=== PATIENT | female | born 2000 | race Asian ===

== ENCOUNTER 2025-04-22 06:25 | Outpatient (REF) | payer OTHER, SELFPAY ==
--- NOTE | ~2025-04-22 | US_ITS ---
EXAMINATION: US PELVIC, LIMITED/FOLLOW UP CLINICAL INFORMATION: Localized swelling/lump lower back x1 year fluctuates . Associated with pain and tingling in legs. COMPARISON: None available. TECHNIQUE: Grayscale and color Doppler ultrasound imaging of the area of concern in the patient's lower back was performed. FINDINGS: In the area of concern, there is no mass, cyst, abnormal fluid collection, or other abnormality. Only normal subcutaneous soft tissues are noted. US/US pelvic limited IMPRESSION: Normal examination. No abnormality identified. Electronically signed by: Regulo Bradshaw MD 04/22/2025 03:04 PM EDT
--- OUTSIDE RECORDS SUMMARY | 2025-04-22 06:31 | XMS_ITS | Clinical Summary ---
Author Organization [facility] Address [address] [facility] [address] [place] [address] Care Team Providers Care Motor Vehicle Dispatcher Name Role Phone No Pcp, Per Patient Primary Care Provider Unavai lable Allergies No known active allergies Medications No known medications Active Problems Problem Noted Date Diagnosed Date Encounter for supervision of normal first in first trimester ([facility]) 03/04/2022 Overview (03/16/2022): 1. Dating- uncertain lmp- TYLOR by u/s at 9 weeks 10/06/22 2. LAbs- ob panel today Pap deferred, 21 yo 3. Genetics- desires cf, sma, HGBE - CF and SMA Negative Reviewed ss vs. NIPT, pt considering, NT at 12 weeks 4. Teen pgy, states FOB supportive. Will arrange SW consult. Family History Medical History Relation Name Comments No Known Problems Brother 1 No Known Problems Brother 2 No Known Problems Father No Known Problems Mother No Known Problems Sister 1 No Known Problems Sister 2 Relation Name Status Comments Brother 1 Alive Brother 2 Alive Father Alive Mother Alive Sister 1 Alive Sister 2 Alive Social History Tobacco Use Types Packs/Day Years Used Date Smoking Tobacco: Never Alcohol Use Standard Drinks/Week Comments Never 0 (1 standard drink = 0.6 oz pur e alcohol) Comments No Sex and Gender Information Value Date Recorded Sex Assigned at Female 02/04/2022 1:14 PM EDT Legal Sex Female 2:38 PM EDT Gender Identity Not on file Sexual Orientation Not on file Last Filed Vital Signs Vital Sign Reading Time Taken Comments Blood Pressure 100/60 03/04/2022 2:52 PM EDT Pulse - - Temperature - - Respiratory Rate - - Oxygen Saturation - - Inhaled Oxygen Concentration - - Weight 51.3 kg (113 lb) 03/04/2022 2:52 PM EDT Height - - Body Mass Index - - Plan of Treatment Not on file Insurance [facility] O Care Teams Motor Vehicle Dispatcher Relationship Specialty Start Date End Date No Pcp, Per Patient STEVE PCP - General 01/17/22
--- OUTSIDE RECORDS SUMMARY | 2025-04-22 06:31 | XMS_ITS | Referral Summary ---
Author Organization [facility] Address [address] [place] [address] Phone Care Team Providers Care Electrical Engineering Draftsperson Name Role Phone Vicenta Holman MD Unavailable Unavailable Pcp-Confirmed, No Primary Care Provider Unavaila ble Allergies No known active allergies Medications pyridoxine, vitamin B6, (VITAMIN B-6) 25 MG tabletIndicatio ns: with care elsewhere, antepartum Take 1 tablet (25 mg total) by mouth every 8 (eight) hours. 90 tablet 4 04/15/2022 Active doxylamine (UNISON) 25 mg tabletIndicatio ns: with care elsewhere, antepartum Take 1 tablet (25 mg total) by mouth nightly as needed for nausea. 60 tablet 4 04/15/2022 Active [id number] a-epa-fish oil ( GUMMY) 400 mcg-35 mg -25 mg-5 mg ChewIndications : with care elsewhere, antepartum Chew then swallow 1 tablet daily. 60 tablet 4 04/15/2022 Active aspirin 81 mg tabletIndicatio ns: with care elsewhere, antepartum Take 1 tablet (81 mg total) by mouth daily. 60 tablet 4 04/15/2022 Active Active Problems Problem Noted Date Diagnosed Date with care elsewhere, antepart um 04/15/2022 Encounter for supervision of normal first in first trimester 03/04/2022 Overview (04/15/2022): 1. Dating- uncertain lmp- TYLOR by u/s at 9 weeks 10/06/22 2. LAbs- ob panel today Pap deferred, 21 yo 3. Genetics- desires cf, sma, HGBE - CF and SMA Negative Reviewed ss vs. NIPT, pt considering, NT at 12 weeks 4. Teen pgy, states FOB supportive. Will arrange SW consult. Social History Tobacco Use Types Packs/Day Years Used Date Smoking Tobacco: Never Assessed Comments No Sex and Gender Information Value Date Recorded Sex Assigned at Not on file Legal Sex Female 11:05 AM EDT Gender Identity Not on file Sexual Orientation Not on file Last Filed Vital Signs Vital Sign Reading Time Taken Comments Blood Pressure 97/64 04/15/2022 5:01 PM EDT Pulse - - Temperature - - Respiratory Rate - - Oxygen Saturation - - Inhaled Oxygen Concentration - - Weight 52 kg (114 lb 10.2 oz) 04/15/2022 5:01 PM EDT Height - - Body Mass Index - - Plan of Treatment Not on file Care Teams Electrical Engineering Draftsperson Relationship Specialty Start Date End Date Vicenta Holman MD PCP - Insurance 01/14/22 Pcp-Confirmed, No PCP - General 05/19/22
--- OUTSIDE RECORDS SUMMARY | 2025-04-22 06:31 | XMS_ITS | Clinical Summary ---
Author Organization [facility] Address [address] [place] [address] Phone Care Team Providers Care Polygraph Operator Name Role Phone Vicenta Holman MD Unavailable [...] for nausea. 60 tablet 4 04/15/2022 Active [id number] a-epa-fish oil ( GUMMY) 400 mcg-35 mg [...] Mass Index - - Plan of Treatment Health Maintenance Due Date Last Done Comments HIV Lifetime Screening 2002 Hepatitis B Lifetime Screening 2002 Hepatitis C Antibody Lifetime Screening 2002 THRIVE SCREENING 2002 Oral Health Screen 04/23/2003 MMR VACCINES (1 of 1 - Standard series) 11/22/2003 HEIP Disability Screen 11/22/2007 BEHAVIORAL HEALTH SCREEN 2014 Psych Substance Use Screen 2014 VARICELLA VACCINES (1 of 2 - 13+ 2-dose series) 11/22/2015 CHLAMYDIA SCREENING 2017 HPV VACCINES (1 - 3-dose series) 2017 Relationship Safety Screening 2017 MENINGOCOCCAL B (1 of 2 - Standard) 2018 DTAP/TDAP VACCINE (1 - Tdap) 2021 HEPATITIS B VACCINES (1 of 3 - 19+ 3-dose series) 2021 Cervical Cancer Screening 11/22/2023 Colposcopy 11/22/2023 PAP SMEAR 11/22/2023 Pap + HPV 11/22/2023 INFLUENZA VACCINE (#1) 2025 , 06/08/2022, 06/25/2021, Additional history exists Zoster Vaccine (1 of 2) 2052 COVID-19 Vaccine Discontinued 09/05/2021, , 12/26/2020 HEPATITIS A VACCINES Aged Out No long er eligible based on patient's age to complete this topic HIB VACCINES Aged Out No longer eligi ble based on patient's age to complete this topic IPV VACCINES Aged Out No longer eligi ble based on patient's age to complete this topic MENINGOCOCCAL ACWY Aged Out No longer eligible based on patient's age to complete this topic Pneumonia Vaccine 0-49 Years Aged Out No longer eligible based on patient's age to complete this topic ROTAVIRUS VACCINES Aged Out No longer eligible based on patient's age to complete this topic Care Teams Polygraph Operator Relationship Specialty Start Date End Date Vicenta Holman MD PCP - Insurance 01/14/22 Pcp-Confirmed, No PCP - General 05/19/22
--- OUTSIDE RECORDS SUMMARY | 2025-04-22 06:31 | XMS_ITS | Encounter Summary ---
Author Organization [facility] Address [address] [place] [address] Phone Care Team Providers Care Linux Unix System Administrator Name Role Phone Vicenta Holman MD Unavailable Unavailable Pcp-Confirmed, No Primary Care Provider Unavaila ble Reason for Visit * Reason Onset Date Comments Appointment 05/10/2022 Encounter Details Date Type Department Care Team (Late st Contact Info) Description 05/10/2022 Telephone [facility] [address] [facility] [address] [place] [phone] [place] [address] Appointment Social History Tobacco Use Types Packs/Day Years Used Date Smoking Tobacco: Never Assessed Comments Yes Sex and Gender Information Value Date Recorded Sex Assigned at Not on file Legal Sex Female 11:05 AM EDT Gender Identity Not on file Sexual Orientation Not on file documented as of this encounter Miscellaneous Notes * Telephone Encounter - Tomeka Lassiter - 05/10/2022 2:51 PM EDT Patient Reported Reason for Call Patient presents with ??? Appointment Pt called to reschedule f/u. documented in this encounter Plan of Treatment Not on file documented as of this encounter Visit Diagnoses Not on filedocumented in this encounter Care Teams Linux Unix System Administrator Relationship Specialty Start Date End Date Vicenta Holman MD PCP - Insurance 01/14/22 Pcp-Confirmed, No PCP - General 05/19/22 documented as of this encounter
--- OUTSIDE RECORDS SUMMARY | 2025-04-22 06:31 | XMS_ITS | Encounter Summary ---
Author Organization [facility] Address [address] [place] [address] Phone Care Team Providers Care Cost And Risk Analysis Manager Name Role Phone Vicenta Holman MD Unavailable Unavailable Pcp-Confirmed, No Primary Care Provider Unavaila ble Reason for Visit * Reason Onset Date Comments Call Back 04/01/2022 Encounter Details Date Type Department Care Team (Late st Contact Info) Description 04/01/2022 Telephone [facility] [address] [facility] [address] [place] [address] Pcp-Confirmed, No Call Back Social History Tobacco Use Types Packs/Day Years Used Date Smoking Tobacco: Never Assessed Comments Unknown Sex and Gender Information Value Date Recorded Sex Assigned at Not on file Legal Sex Female 11:05 AM EDT Gender Identity Not on file Sexual Orientation Not on file documented as of this encounter Miscellaneous Notes * Telephone Encounter - Betty Lynn - 04/01/2022 3:31 PM EDT Patient Reported Reason for Call Patient presents with ??? Call Back Pt is calling to transfer her [place] [facility]. I tried to schedule under new care and there Is not a template to schedule for that visit type. Age:21 P: [phone] LMP: 12/30/2021 Estimated Due date: 10/06/2022 OBGYN: [facility] documented in this encounter Plan of Treatment Not on file documented as of this encounter Visit Diagnoses Not on filedocumented in this encounter Care Teams Cost And Risk Analysis Manager Relationship Specialty Start Date End Date Vicenta Holman MD PCP - Insurance 01/14/22 Pcp-Confirmed, No PCP - General 05/19/22 documented as of this encounter
--- OUTSIDE RECORDS SUMMARY | 2025-04-22 06:31 | XMS_ITS | Clinical Summary ---
Author Organization [facility] Address [address] [facility] [place] [address] Phone Care Team Providers Care Ethernet Network Architect Name Role Phone Required, No Pcp/Pcp Not Primary Care Provider U navailable Allergies No known active allergies Medications No known medications Social History Tobacco Use Types Packs/Day Years Used Date Smoking Tobacco: Never Smokeless Tobacco: Never Comments Unknown Sex and Gender Information Value Date Recorded Sex Assigned at Not on file Legal Sex Female 4:24 PM EDT Gender Identity Not on file Sexual Orientation Not on file Last Filed Vital Signs Vital Sign Reading Time Taken Comments Blood Pressure 91/64 04/04/2022 3:45 PM EDT Pulse 77 04/04/2022 3:45 PM EDT Temperature 36.2 C (97.1 F) 04/04/2022 2:22 PM EDT Respiratory Rate 14 04/04/2022 3:45 PM EDT Oxygen Saturation 96% 04/04/2022 2:22 PM EDT Inhaled Oxygen Concentration - - Weight 50.8 kg (112 lb) 04/04/2022 2:22 PM EDT Height 152.4 cm (5') 04/04/2022 2:22 PM EDT Body Mass Index 21.87 04/04/2022 2:22 PM EDT Plan of Treatment Health Maintenance Due Date Last Done Comments [facility] Topic HIV Screening 2002 [facility] Topic HPV Vaccines (1 - 3-dose series) 2017 [facility] Topic Meningococcal G roup B Conjugate Vaccine (1 of 2 - Standard) 2018 [facility] Topic Tdap Vaccine (1 - Tdap) 2021 [facility] Topic Chlamydia Screening 03/04/2023 03/04/20 [facility] Topic Cervical Cancer Screening 11/22/2023 [facility] Topic Lipid Profile 5 years 2024 [facility] Topic Influenza (Flu) Seasonal (#1) 2025 [facility] Topic Shingrix (1 of 2) 2052 [facility] Topic HIB Vaccines Aged Out No longer eligible based on patient's age to complete this topic Insurance [facility] Care Teams Ethernet Network Architect Relationship Specialty Start Date End Date Required, No Pcp/Pcp Not [address] [place] [address] PCP - General Amalgamator 02/01/22
--- OUTSIDE RECORDS SUMMARY | 2025-04-22 06:31 | XMS_ITS | Encounter Summary ---
Author Organization [facility] Address [address] [place] [address] Phone Care Team Providers Care Gear Tester Name Role Phone Vicenta Holman MD Unavailable Unavailable Pcp-Confirmed, No Primary Care Provider Unavaila ble Reason for Visit * Reason Onset Date Comments Initial Visit 01/14/2022 Encounter Details Date Type Department Care Team (Late st Contact Info) Description 01/14/2022 Telephone [facility] [address] [facility] [address] [address] [place] [phone] [place] [address] Initial Visit Social History Tobacco Use Types Packs/Day Years Used Date Smoking Tobacco: Never Assessed Comments Unknown Sex and Gender Information Value Date Recorded Sex Assigned at Not on file Legal Sex Female 11:05 AM EDT Gender Identity Not on file Sexual Orientation Not on file documented as of this encounter Miscellaneous Notes * Telephone Encounter - Yasir Boucher - 01/14/2022 2:38 PM EDT Patient Reported Reason for Call Patient presents with ??? Initial Visit new pt called stating she is . Pt would like to establish care with a doctor for care .please call to further assist documented in this encounter Plan of Treatment Not on file documented as of this encounter Visit Diagnoses Not on filedocumented in this encounter Care Teams Gear Tester Relationship Specialty Start Date End Date Vicenta Holman MD PCP - Insurance 01/14/22 Pcp-Confirmed, No PCP - General 05/19/22 documented as of this encounter
--- OUTSIDE RECORDS SUMMARY | 2025-04-22 06:31 | XMS_ITS | Clinical Summary ---
Author Organization [facility] Address [address] [place] [phone] Phone Care Team Providers Care Prospecting Driller Name Role Phone Vicenta Holman MD Primary Care Provider Allergies No known active allergies Medications No known medications Active Problems Problem Noted Date Diagnosed Date Normal intrauterine , antepartum 2023 Assessment & Plan (04/12/2024 4:02 AM EDT): -Admit to CBC -Admission labs ordered -Reactive NST -Cont. Monitoring -May start using hydrotherapy -NO4 ordered as well -MD in house and available as needed -Anticipate Low back pain due to bilateral sciatica 10/11/19 Overview (01/23/2024): Doing much better with yoga and walking. Uses lidocaine patch sparingly and feels with the yoga doesn't need PT. Assessment & Plan (04/02/2024 7:47 AM EDT): Saw physiatry since last visit, plan for f/u. Assessment & Plan (01/23/2024 1:54 PM EDT): Doing much better with yoga and walking. Uses lidocaine patch sparingly and feels with the yoga doesn't need PT. Assessment & Plan (11/07/2023 2:35 PM EDT): Some improvement with lidocaine patches, also has PT appts scheduled. Assessment & Plan (10/11/2023 8:24 PM EST): Most of today's visit focused on Nissa's low back pain. She has had since the of her first child and it has worsened recently. It is painful to sit and move from sitting to standing. Feels better moving around. Bhupinder has tried to massage and would like to learn other techniques. Recommended referral to PT, especially as this is a residential issue, she accepts. We discussed Spinning Babies Daily Exercises, abdominal support by belly wrapping or a belt as her uterus grows. Can use Lidocaine patches or massage for short term relief. We also talked about the possibility of animal care giver. Rx sent for lidocaine patches. Nausea and vomiting of , antepartum Assessment & Plan (11/07/2023 2:26 PM EDT): Taking Vitamin B6 and doxylamine with good effect. Able to eat a full diet and stays well hydrated.Has tried skipping and finds nausea increases. Will continue with these medications. Assessment & Plan (10/11/2023 8:20 PM EST): Nausea has improved, still noticing but it is getting better Assessment & Plan (09/13/2023 2:09 PM EST): Reports nausea throughout the day, worse in afternoon. Vomiting 3-4 times a day, every time she eats for the past 3 weeks. Able to keep water down. Requests B6 rx. Sent rx for B6 and unisom, and instructed to call if no improvement in 24-48 hours. Encounter for supervision of normal in third trimester 09/05/2023 Overview (03/26/2024): CNM OB-CMI score: 0 [09/05/2023] Group PN care? No screening low risk cfDNA Baby ASA? Not indicated Rh positive GC/Chlam neg PAP never (not indicated due to age) Flu 06/2023 COVID-19 vaccinated x3, received booster 10/2022 Hgb 10.9 GTT 103 Repeat RPR NR Tdap 02/13/24 EPDS 1 PPBC considering IUD GBS neg Feeding Plan- formula Male, no circ Assessment & Plan (04/11/2024 10:47 PM EDT): Nissa is a 23 y.o. at 40w2d states she feels well today. Denies any concerns at this time. Denies any LOF/Vaginal bleeding/Ucs. -Discussed FM at this [facility] and [facility] -Review signs and symptoms of Labor and when/how to contact midwives -Discussed natural ways of promoting labor such as Nipple stim -Reviewed end of discomforts and comfort measures. -Advised on post dates surveillance and IOL Assessment & Plan (04/02/2024 7:47 AM EDT): Short visit as pt was late to appointment. She feels fairly well and has no OB concerns. Discussed U/S findings from 03/20 which showed mild polyhydramnios by MVP along; overall CARLOS was normal at at 18 cm. BPP 04/04. Plan for repeat at mo. Assessment & Plan (05/05/2024 1:22 PM EDT): Nissa is a 23 y.o. at 37w4d states she feels well today. Denies any concerns at this time. Denies any LOF/Vaginal bleeding/Ucs. -Discussed FM at this [facility] and [facility] -Review signs and symptoms of Labor and when/how to contact midwives -GBS neg -Discussed US prelim report. Advised that Mds review all US and may make further recommendations -Advised on weekly visits from now on. -Reviewed end of discomforts and comfort measures. Assessment & Plan (03/12/2024 2:20 PM EDT): Here with partner. Feeling OK, though still struggling with low back and what she perceives as a lump over lower spine. Not improving or worsening. Has an appt with Dr. Lawson tomorrow for evaluation. On chart reviewed, Nissa's first baby was SGA at . S=D but recommend growth U/S with n.v. per protocol. GBS today. Reviewed s/s of labor and contacting practice, self-care in early labor. Assessment & Plan (02/15/2024 1:37 PM EDT): Here with her partner. She is feeling ok, her primary concern today is back pain and perceived bulging over spine. She and partner both report that she sometimes has a prominence or bulging of tissue that can be seen over her thoracic spine or sacrum. Pain seems to be present when bulging is present. They do not see this on exam today with me in the office. She has pain over her sacrum, in SI joints, tailbone, and shooting down her thighs frequently. Never had anything like this prior to or with previous . Has used lidocaine patch with minimal improvement. Discussed option for referral to physiatry for further assessment vs symptomatic care and reassess in period, patient and partner both desire referral now. PP BCM discussed, considering IUD, has never used before. Info given in AVS. Reports worsening stress incontinence during this . Some mild symptoms in between pregnancies. Would like to be referred to pelvic floor PT in the period, declines referral now. Assessment & Plan (01/23/2024 1:57 PM EDT): Having some BHCs, disc how to be comfortable, when to call. Prefers rx for iron tab for mild anemia--rx sent--tolerated just fine in last preg. They live with his grandmother who helps with their toddler. Asked why she is choosing formula feeding (which she also did last time)--she reports bc she is still in school she doesn't have time to pump. Disc that even 3 weeks of breast milk is better than no milk, and she can still give formula once she returns to school. Disc that if she still wants only formula we will support her in that choice. Reviewed comfort measures. Reviewed steps to take toward optimal health in . Reviewed s/s PTL, danger signs, when/how to call. Assessment & Plan (12/01/2023 2:58 PM EDT): Nissa is a 23 y.o. at 21w6d states she feels well today. Denies any concerns at this time. Denies any LOF/Vaginal bleeding/Ucs. Reports +FM -She wanted to know if its ok to take a multivitamin. All questions answered -Discussed FM at this [facility] and [facility] -Review signs and symptoms of Pre-term Labor and when/how to contact midwives -Discuss US results. She was worried about the baby being breech. I explained that there is time for baby to turn and be vertex -2nd trimester labs discussed for 28 wks. -NV in 4 weeks Assessment & Plan (11/07/2023 2:35 PM EDT): Here with her partner. She is feeling well other than mild nausea and vomiting. Has been feeling some movement. 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 Reviewed normal labs including low risk cfDNA. Discussed and scheduled anatomy scan. Normal brief PE completed today, see OB tab. Assessment & Plan (10/11/2023 8:21 PM EST): Nissa is a 22 y.o. at 14w2d doing well. Here with partner, Bhupinder. Reviewed normal labs. Anatomy US ordered for 20 weeks. Assessment & Plan (09/13/2023 2:13 PM EST): Reviewed normal dating u/s findings. Having new OB labs today with cfDNA and carrier screen. RX sent for colace for constipation and unisom and B6 for nausea and vomiting. Will call in 24-48 hours if no improvement with N+V. Early comfort measures reviewed. Disc steps to take toward optimal health in . Reviewed s/s of SAB, EP, danger signs, when/how to call. Resolved Problems Problem Noted Date Diagnosed Date Resolved Date Anemia 09/05/2023 10/11/2023 Overview (09/05/2023): Patient currently taking an iron supplement. Anemia defined as: Hgb < 11 1st & 3rd trimester Hgb < 10.5 2nd trimester consider checking serum ferritin to confirm iron deficiency: ferreting added to intake labs. Other testing as indicated (hgb electrophoresis or iron studies) Iron deficiency anemia- begin Fe supplement: 60 mg elemental Fe daily (BID or TID if severe anemia), consider stool softener and vitamin C CBC, ferritin, in 2-6 wks consider IV iron infusion (FEREHEME 510mg on CBC or cancer center) if severe, not able to take oral iron, or not improving Heme consult if anemia severe (< 8) or etiology is unclear Assessment & Plan (10/11/2023 8:21 PM EST): Hgb 13.7, reviewed not currently anemic. She is not taking an iron supplement now. Reviewed we will check again at 26-28 weeks Normal intrauterine , antepartum 10/07/2022 12/23/2022 At risk for depression 08/08/2022 12/23/2022 Overview (08/08/2022): EPDS 16 on 08/04/22 Referred to [facility] Declines medication start after counseling. Interested in therapy. Will start with Student Health at [employer] Consider therapy referral if unable to meet with someone soon through school Assessment & Plan (09/30/2022 3:53 PM EST): Pt reports mood is good Assessment & Plan (08/08/2022 12:11 PM EST): Nissa states she is feeling more tired, overwhelmed, and anxious than usual. EPDS is 16. Has good support at home but feels overwhelmed by preparing for baby and also being in nursing school. Discussed depression during and reinforced decision to ask for help. Discussed medication, which she is opposed to. Discussed crisis resources and reviewed area resources. Denies SI/HI, does not need crisis services at this time. Would like to meet with a therapist. Will try [facility] at [employer]. Check in at mo. Recommended [facility] referral as well. She accepts. Referral entered. Intrauterine in teenager 08/05/2022 12/23/2022 Overview (08/05/2022): Referred to [facility] 08/05/22 with her permission Assessment & Plan (08/17/2022 7:50 AM EST): Has connected with [facility] and is awaiting an intake appt. Poor growth affecting management of mother in third trimester 07/18/2022 12/23/2022 Overview (09/06/2022): Client and partner are constitutionally smaller people [place] population is all white clients from a single hospital. AGA on eric's Continue to monitor F/u growth 08/04 was wnl at 33rd %ile and AC 17th %ile. Further growth U/S can be considered if there is still concern for IUGR based on fundal height No change in FH at 35w. Growth sono nml, EFW 23%ile, AC 13%, CARLOS 18. growth Restriction (FGR) - diagnosed by EFW or AC <10%ile. Severe FGR is EFW <3%ile < 32 wks (or polyhydramnios or other abnormalities) offer cell free DNA and/or amnio (with CMV PCR) TORCH titers not advised in the absence of risk factors Level 2 (if diagnosed at <32 weeks) surveillance - include weekly NST and doppler, growth every 3-4 weeks (every 2 weeks if severe) Deliver 38-39 wks EFW <10%ile and normal testing - Delivery 37 weeks if EFW < 3%ile, or abnormal testing See AJOG 2020 article for details of surveillance and management of severe FGR and abnormal testing https://www.ajog.org/action/showPdf?rgs=[email or web address]%2820%0883161-0 Assessment & Plan (09/13/2022 3:44 PM EST): Appropriate change in FH since last visit. Assessment & Plan (08/25/2022 5:29 PM EST): No change in FH since last visit. Growth sono ordered to be done within 2 weeks. Assessment & Plan (08/17/2022 7:48 AM EST): Reviewed MD report of previous ultrasound and that no further ultrasounds were recommended. Advised we can follow clinically via fundal heights and will have a low threshold for ordering imaging if size is lagging. S=D today within 1cm. Assessment & Plan (08/08/2022 12:08 PM EST): Normal growth today at 33rd %ile. We discussed that there is no concern for IUGR at this time and further U/S can be ordered as needed based on fundal height; however I did advise her I was looking at preliminary U/S report and may make another recommendation. Advised this would likely be to recheck growth in 4 weeks. Anemia affecting i n second trimester 07/12/2022 12/23/2022 Overview (09/06/2022): 07/12/22 Hgb 10.8, started iron QD 09/05/21 at 35w: Hgb 11.7, ferritin nml at 26 Anemia defined as: Hgb < 11 1st & 3rd trimester Hgb < 10.5 2nd trimester consider checking serum ferritin to confirm iron deficiency Other testing as indicated (hgb electrophoresis or iron studies) Iron deficiency anemia- begin Fe supplement: 60 mg elemental Fe daily (BID or TID if severe anemia), consider stool softener and vitamin C CBC, ferritin, in 2-6 wks consider IV iron infusion (FEREHEME 510mg on CBC or cancer center) if severe, not able to take oral iron, or not improving Heme consult if anemia severe (< 8) or etiology is unclear Assessment & Plan (09/30/2022 3:52 PM EST): Reports she is taking iron Assessment & Plan (09/13/2022 3:43 PM EST): Disc that anemia is now corrected. Since she is tolerating iron, she should continue supplementing. Assessment & Plan (08/25/2022 5:32 PM EST): Plan for CBC w ferritin at 36w, disc w pt, order placed. Assessment & Plan (08/05/2022 8:08 AM EST): Does feel symptomatic at times - weak, heart races, dizzy, more tired than usual. Has been taking an iron supplement (37.5 mg elemental) every other day. Suggested double this dose every other day, she agrees with plan. Sent Rx to pharmacy. Plan to recheck CBC and ferritin with n.v. Back pain in 07/11/202212/23 Assessment & Plan (08/25/2022 5:31 PM EST): Taking daily walks. Pain in low-back is mostly when she lies down at night. No urinary changes. Abel PN yoga and sent link for class starting next week. Assessment & Plan (07/11/2022 12:44 PM EST): Sounds musculoskeletal Recommended Spinning Babies exercise and Cradle (rx given) Leg cramps in 07/11/202211/27 Assessment & Plan (07/11/2022 12:50 PM EST): Reviewed this is a common discomfort of , recommended strecthing and Mag/Murphy supplement Encounter for supervision of normal in third trimester 07/08/2022 12/23/2022 Overview (09/18/2022): CNM OB-CMI score: 0 [06/21/2022] Plans formula feeding Group PN care? * AB pos GC/Chlam neg PAP not yet indicated d/t age Tdap 08/11/22 Flu rec'd fall 2021 COVID-19 vaccinated x 2 + booster, plans bivalent booster Hgb 11.2 GTT 125 28 wk Repeat RPR NR GBS Neg PPBC considering Mirena IUD, desires interval placement screening CFDNA negative Assessment & Plan (10/07/2022 3:56 PM EST): Nissa here for GRAZYNA with partner. Reports feeling cramps for the last 45 minutes. Baby active today, denies bleeding. Uterus soft Reports some leakage of fluid x 1 but none since SSE: neg fern, neg nitrazine FHTs: 140s We discussed that this may be early labor--reviewed comforts, sx of active labor and when to call Enc RTO 3-4 days if this is not labor for GRAZYNA Assessment & Plan (09/30/2022 3:56 PM EST): Nissa is a telehealth visit today due to weather. Reports mild, irregular contractions, lots of fm, no vb, lof We reviewed when and how to contact CNM Discussed labor signs RTO 5 days for follow up. Assessment & Plan (09/23/2022 2:23 PM EST): Nissa is a 21yo @ 38+1wks. Reports feeling well. 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 MIL will come take care of baby. FH appropriate today. GRAZYNA 1 wk. Assessment & Plan (09/18/2022 6:19 PM EST): Here w her partner. They are ready for baby. They got a carseat last week. Reviewed GBS neg. Some change in FH since last visit. When asked, she thinks baby may have dropped bc it feels lower and she feels more pressure. We reviewed where to go at [facility] for labor and to call first. 3rd tri comforts measures reviewed. Disc steps to take toward optimal health in . Reviewed s/s labor, danger signs, when/how to call. Assessment & Plan (09/13/2022 3:46 PM EST): GBS collected today. 3rd tri comforts measures reviewed. Disc steps to take toward optimal health in . Reviewed s/s labor, danger signs, when/how to call. Assessment & Plan (08/25/2022 5:36 PM EST): Reports leaking of water--SSE neg for pooling, nitrazine, ferning. Copious cervical mucus present. Disc calling if this increasing or changes. 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 She still wants to formula feed. Taking iron daily. No constipation. Disc CBC/ferritin for NV, orders placed. GBS NV. Will disc Mirena further with and asked that she decide soon on imm vs interval placement. Reviewed comfort measures. Reviewed steps to take toward optimal health in . Reviewed s/s PTL, danger signs, when/how to call. Assessment & Plan (08/17/2022 7:51 AM EST): Feels well, no concerns. Emotionally feels better today and reports stable mood. TDAP today. Assessment & Plan (08/08/2022 12:12 PM EST): Feeling OK except for some dizzy spells and episodes of shortness of breath. See prob list for anemia. Discussed importance of adequate hydration and nutrition. 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 Advised she is + for rubella and varicella, will let us know if anything else is needed. utox sent today per her request. Reviewed third trimester warning signs and reasons to call. Would like TDAP at mo (none available in office today). Discussed childbirth ed and gave link to register. Assessment & Plan (07/11/2022 12:50 PM EST): Transfer of care at 27 weeks Nissa had care at both [facility] and [facility], last visit at 15 weeks. Has not had anatomy US yet. We reviewed records together, she had intake labs at [facility] which are in chart. Did not have Hep C or Varicella testing, added on to 28 week labs - CBC/GTT/RPR. Did [facility] Foresight testing which was negative for CF and SMA. Would like to do CFDNA. 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 Discussed CBE and GPC. Abdominal pain during pregna ncy in second trimester 06/21/2022 12/23/2022 Assessment & Plan (07/11/2022 12:43 PM EST): Seen on CBC for abdominal pain. It is feeling better now. Reviewed s/s of PTL and when/how to call Assessment & Plan (06/21/2022 7:50 PM EDT): -Encouraged increase hydration. Explained that dehydration may cause ucs. -Discussed growing pain -WBC normal -UA neg -FFN neg -Advised to call the office in the morning to schedule f/u appointment Encounters Date Type Department Care Team Description 03/19/2025 3:50 PM EDT Office Visit [facility] [address] [place] [address] Dr Hamilton, STEVE [phone] Raquel Carty CNM Sacral pain (Primary Dx) from Last 3 Months Immunizations Immunization Administration Dates Next Due Hepatitis A, ped/adol, 2 dose 08/12/2020, 020 Hepatitis B Adult 01/09/2024,08/31/2023,07/31/20 23 Influenza Quadrivalent Prese rvative Free IM 07/31/2023,06/08/2022,06/25/2021,06/25,06/18/2019,06/09/2018,06/17/2017 ,05/31/2016 Meningococcal B, OMV (MenB-4C) 03/10/2020,2019 Meningococcal MCV4P 02/07/2020 Tdap 02/13/2024,08/11/2022 Family History Medical History Relation Comments No Known Problems Daughter No Known Problems Father No Known Problems Maternal Grandfather No Known Problems Maternal Grandmother No Known Problems Mother No Known Problems Paternal Grandfather No Known Problems Paternal Grandmother Asthma Sister 1 Relation Status Comments Brother 1 Alive Brother 2 Alive Daughter Alive Father Alive Maternal Grandfather Maternal Grandmother Mother Alive Paternal Grandfather Paternal Grandmother Sister 1 Alive Sister 2 Alive Social History Tobacco Use Types Packs/Day Years Used Date Smoking Tobacco: Never Smokeless Tobacco: Never Tobacco Cessation:Counseling Given: Not Answered Alcohol Use Standard Drinks/Week Comments Never 0 (1 standard drink = 0.6 oz pur e alcohol) Education Answer Date Recorded Are you interested in more education? Not on lamont e 12/23/2022 Are you concerned about learning? Not on file 12/23/2022 No 12/23/2022 No 12/23/2022 Food Answer Date Recorded Within the past 6 months we worried whether our food would run out before we got money to buy more. Never True 04/12/2024 Within the past 6 months the food we bought just didn't last and we didn't have enough money to get more. Never True Residential Stability Answer Date Recor ded What is your housing situation today? I have fernando sing 04/12/2024 How many times have you move d in the past 12 months? Zero (I did not move) 04/12/2024 Paying for Meds Answer Date Recorded Do you have trouble paying for medicines? No 04/12/2024 Paying Utility Bills Answer Date Record ed Do you have trouble paying your heating or elect ricity bill? No 04/12/2024 Transportation Answer Date Recorded Has the lack of transportati on kept you from medical appointments or from getting medications? No 04/12/2024 Digital Access Answer Date Recorded No 04/12/2024 Yes 04/12/2024 Do you have reliable internet access at home? Ye s 04/12/2024 Do you have a device (e.g., phone, tablet, computer) with a working camera? Yes 04/12/2024 Intimate Partner Violence Answer Date R ecorded Are you denied basic needs s uch as food, clothing, or medical care? No 04/13/2024 In the past 12 months have y ou been in a relationship with a person who hurts, threatens, or tries to control you? No 04/13/2024 Are you denied basic needs s uch as food, clothing, or medical care? No 04/13/2024 In the past 12 months have y ou been in a relationship with a person who hurts, threatens, or tries to control you? No 04/13/2024 Comments No Sex and Gender Information Value Date Recorded Sex Assigned at Female 07/05/2022 1:17 PM EST Legal Sex Female 5:12 PM EDT Gender Identity Female 07/05/2022 1:17 PM EST Sexual Orientation Not on file Last Filed Vital Signs Vital Sign Reading Time Taken Comments Blood Pressure 96/62 03/19/2025 4:10 PM EDT Pulse 77 04/13/2024 11:55 PM EDT Temperature 36.8 C (98.2 F) 04/13/2024 11:55 PM EDT Respiratory Rate 18 04/13/2024 11:55 PM EDT Oxygen Saturation 98% 04/13/2024 11:55 PM EDT Inhaled Oxygen Concentration - - Weight 73.9 kg (163 lb) 04/12/2024 4:47 AM EDT Height 152.4 cm (5') 04/12/2024 4:47 AM EDT Body Mass Index 31.83 04/12/2024 4:47 AM EDT Plan of Treatment Health Maintenance Due Date Last Done Comments DEPRESSION SCREENING 2014 HPV VACCINES (1 - 3-dose series) 2017 PAP SMEAR 11/22/2023 COVID-19 VACCINE (4 - 2023-2 5 season) 2024 09/05/2021, 01/16/2021, 12/26/2020 CHLAMYDIA SCREENING 09/13/2024 09/13/2023, 06/21/2022 SMOKING Hx and SMOKELESS TOBACCO SCREENING 03/19/2026 03/19/2025 Adult Td,Tdap Booster 02/12/2034 02/13/2024 , 08/11/2022 MENINGOCOCCAL VACCINES (ACWY) Completed 02/07/2020 MENINGOCOCCAL VACCINES (B) Completed 03/10, 02/07/2020 HEPATITIS A VACCINES Completed 08/12/2020, 02/07/2020 HEPATITIS C SCREENING Completed 09/13/2023 , 07/08/2022 HIV ONE-TIME SCREENING (18-6 5 YEARS) Completed 09/13/2023 HIB VACCINES Aged Out No longer eligi ble based on patient's age to complete this topic PNEUMOCOCCAL VACCINES (0-49 years) Aged Out No longer eligible b ased on patient's age to complete this topic Medical Devices Not on file Procedures Procedure Name Priority Date/Time Associated Diagnosis Comments HEPATITIS C ANTIBODY, QUALITATIVE Routine 09/13/2023 2:20 PM EST Encounter for supervision of normal in first trimester CHLAMYDIA TRACHOMATIS AND NEISSERIA GONORRHOEAE NUCLEIC ACID DETECTION Routine 09/13/2023 1:45 PM EST Encounter for supervision of normal in first trimester from Last 3 Months or Most Recently Relevant to Health Maintenance Results * Hepatitis C antibody, qualitative (09/13/2023 2:20 PM EST) HCV NON-REACTIV E NON-REACTI VE [facility] Blood 09/13/2023 2:20 PM EST 09/13/2023 2:30 PM EST Pamela Tse [facility] BLOOD ORDERABLES F inal Result Performing Organization Address [facility] [facility]/ZIP Co de Phone Number [address] [address] * Chlamydia Trachomatis and Neisseria Gonorrhoeae Nucleic Acid Detection (09/13/2023 1:45 PM EST) CHLAMYDIA TRACHOMATIS Not Detected Not Detected [facility] NEISERIA GONORRHOEAE Not Detected Not Detected [facility] SPECIMEN TYPE URINE [facility] Urine (Urine) 09/13/2023 1:4 5 PM EST 09/13/2023 8:18 PM EST Pamela Tse CNM NON CULTURE MICROBIOLO GY Final Result Performing Organization Address [facility] Co de Phone Number [address] [address] from Last 3 Months or Most Recently Relevant to Health Maintenance Insurance [email or web address] ACO [facility] Collect ALLANCE ACO [facility] Collect ALLANCE ACO [facility] Collect ALLANCE ACO Member Subscriber Plan / Payer (Ef fective 2021-Present) Name:Nissa Montez Relation to Subscriber:Self Name:Tc Nissa Payer ID:[id number] Group ID:[id number] Type:Medicaid Address: [place] [id number] [facility] [employer] ACO [facility] ACO [facility] Local[facility]BAN[facility] ACO DERICK [place] [employer]IC[employer]DA ACO Advance Directives For more information, please contact: [phone] (9AM - 5PM Natasha/[facility], Monday-Monday) Documents on File Type Date Recorded 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 It is not the complete legal health record.[facility]
--- OUTSIDE RECORDS SUMMARY | 2025-04-22 06:31 | XMS_ITS | Encounter Summary ---
Author Organization [facility] r Address [address] [place] [address] Phone Care Team Providers Care Music Autographer Name Role Phone Vicenta Holman MD Unavailable Unavailable Pcp-Confirmed, No Primary Care Provider Unavaila ble Reason for Visit * Reason Onset Date Comments Appointment 04/04/2022 Establish Pre-[place] Care Encounter Details Date Type Department Care Team (Late st Contact Info) Description 04/04/2022 [facility] [address] [facility] [address] [place] [phone] Pcp-Confirmed, No Appointment (Establish Pre- Care) Social History Tobacco Use Types Packs/Day Years Used Date Smoking Tobacco: Never Assessed Comments Unknown Sex and Gender Information Value Date Recorded Sex Assigned at Not on file Legal Sex Female 11:05 AM EDT Gender Identity Not on file Sexual Orientation Not on file documented as of this encounter Miscellaneous Notes * Telephone Encounter - Anna Marie Menon - 04/04/2022 1:39 PM EDT Patient Reported Reason for Call Patient presents with ??? Appointment Establish Pre-Ting Care Patient is 3 months and one week along. No care so far. Day of last period was December 30, 2021.. and looking to establish care, documented in this encounter Plan of Treatment Not on file documented as of this encounter Visit Diagnoses Not on filedocumented in this encounter Care Teams Music Autographer Relationship Specialty Start Date End Date Vicenta Holman MD PCP - Insurance 01/14/22 Pcp-Confirmed, No PCP - General 05/19/22 documented as of this encounter
--- OUTSIDE RECORDS SUMMARY | 2025-04-22 06:31 | XMS_ITS ---
Author Name [facility] Organization Unknown Care Team Organization Name Specialty Phone Email Start Date End Da nitza [facility] Vicenta Holman Primary Care 07/05/20222023
--- OUTSIDE RECORDS SUMMARY | 2025-04-22 06:31 | XMS_ITS | Encounter Summary ---
Author Organization [facility] Address [address] [place] [id number] Phone Care Team Providers Care Forest Management Professor Name Role Phone Vicenta Holman MD Primary Care Provider Encounter Details Date Type Department Care Team (Late st Contact Info) Description 08/04/2022 Ancillary Orders [facility] [address] [place] [address] [place] [address] Camille Grubbs, [facility] [address] [facility], [address] [place] [address] [email or web address] Poor growth affecting management of mother in third trimester, single or unspecified fetus Social History Tobacco Use Types Packs/Day Years Used Date Smoking Tobacco: Never Alcohol Use Standard Drinks/Week Comments Never 0 (1 standard drink = 0.6 oz pur e alcohol) Comments Yes Sex and Gender Information Value Date Recorded Sex Assigned at Female 07/05/2022 1:17 PM EST Legal Sex Female 5:12 PM EDT Gender Identity Female 07/05/2022 1:17 PM EST Sexual Orientation Not on file documented as of this encounter Plan of Treatment Not on file documented as of this encounter Results * US OB BIOPHYSICAL PROFILE WITH MEASUREMENTS (08/04/2022 4:34 PM EST) Anatomical Region Laterality Modality Abdomen, Pelvis, Uterus/Adnexa U ltrasound 08/04/2022 4:25 PM EST Impressions 08/07/2022 1:52 PM EST Normal growth, BPP, and CARLOS. If there is still clinical concern about growth, a follow-up growth study could be considered in 3-4 weeks. Narrative 08/07/2022 1:52 PM EST Procedure: US OB GREATER THAN 14 WEEKS ANATOMICAL SURVEY 08/04/2022 3:40 PM US Indications: Other Indication (Please use free text); AC < 10% at 28 weeks. Level II. Comparison: 07/11/2022 Maternal age: 21 years. Technique: Transabdominal scan was performed. Color Doppler and M-mode imaging was performed to assess vascularity. FINDINGS: number: 1 position: Vertex. Placental position: Anterior. Placental grade: 2 Heart Rate: 138 bpm Cervix: The cervix is closed measuring 3.9 cm. Gestational Age by U/S: 31 weeks 0 day(s) Ultrasound EGA: 31 weeks 2 day(s) Ultrasound TYLOR: Established TYLOR: 31 weeks 0 day(s) BPD: 7.98 cm, consistent with 32 weeks 1 day(s) and 71% Head Circumference: 28.95 cm, consistent with 32 weeks 0 day(s) and 37% Abdominal Circumference: 25.74 cm, consistent with 30 weeks 0 day(s) and 17% Femur Length: 5.90 cm, consistent with 30 weeks 6 day(s) and 30% Estimated weight (EFW): 1592 grams +/- 3lb 8 oz. 333lb 8 oz 33 %% based on established TYLOR Hadlock. HC/AC: 1.12 FL/BPD: 0.74 FL/AC: 0.23 Quads: Amniotic Sac Quad 1 - 2.98 cm Amniotic Sac Quad 2 - 4.63 cm Amniotic Sac Quad 3 - 3.71 cm Amniotic Sac Quad 4 - 1.68 cm Amniotic Fluid Index - 13.00 cm Biophysical Profile Score: Fluid: 2 Breathin Movement: 2 Tone: 2 Total: 8 Limited Assessment: The stomach, kidneys, urinary bladder and four-chamber heart were evaluated and normal. Tech Comments: Win . BPP 04/04. EFW = 3lb 8 oz 33 %. AC 17% today Active fetus with normal fluid (13cm ) . Procedure Note Juarez Schwarz MD - 08/07/2022 Procedure: US OB GREATER THAN 14 WEEKS ANATOMICAL SURVEY 08/04/2022 3:40PM US Indications: Other Indication (Please use free text); AC < 10% at 28weeks. Level II. Comparison: 07/11/2022 Maternal age: 21 years. Technique: Transabdominal scan was performed. Color Doppler and M-modeimaging was performed to assess vascularity. FINDINGS: number: 1 position: Vertex. Placental position: Anterior. Placental grade: 2 Heart Rate: 138 bpm Cervix: The cervix is closed measuring 3.9 cm. Gestational Age by U/S: 31 weeks 0 day(s) Ultrasound EGA: 31 weeks 2 day(s) Ultrasound TYLOR: Established TYLOR: 31 weeks 0 day(s) BPD: 7.98 cm, consistent with 32 weeks 1 day(s) and 71% Head Circumference: 28.95 cm, consistent with 32 weeks 0 day(s) and 37% Abdominal Circumference: 25.74 cm, consistent with 30 weeks 0 day(s) and17% Femur Length: 5.90 cm, consistent with 30 weeks 6 day(s) and 30% Estimated weight (EFW): 1592 grams +/- 3lb 8 oz. 333lb 8 oz 33 %% based on established TYLOR Hadlock. HC/AC: 1.12 FL/BPD: 0.74 FL/AC: 0.23 Quads: Amniotic Sac Quad 1 - 2.98 cm Amniotic Sac Quad 2 - 4.63 cm Amniotic Sac Quad 3 - 3.71 cm Amniotic Sac Quad 4 - 1.68 cm Amniotic Fluid Index - 13.00 cm Biophysical Profile Score: Fluid: 2 Breathin Movement: 2 Tone: 2 Total: 8 Limited Assessment: The stomach, kidneys, urinary bladder andfour- chamber heart were evaluated and normal. Tech Comments: Win . BPP 04/04. EFW = 3lb 8 oz 33 %. AC 17% todayActive fetus with normal fluid (13cm ) . IMPRESSION: Normal growth, BPP, and CARLOS. If there is still clinical concern aboutfetal growth, a follow-up growth study could be considered in 3-4 weeks. us Camille Grubbs CNM IMG US OBSTETRIC Final Result documented in this encounter Visit Diagnoses Diagnosis Poor growth affecting management of mother in third trimester, single or unspecified fetus Poor growth affecting management of mother in third trimester, single or unspecified fetus documented in this encounter Care Teams Forest Management Professor Relationship Specialty Start Date End Date Vicenta Holman MD PCP - General 01/05/22 documented as of this encounter Additional Source Comments The information contained in this document represents components of the legal health record. It is not the complete legal health record.[facility]
== END 2025-04-22 06:26 | disposition home or self-care (01) ==
LOC: HO.UMASIMG 06:25
PROVIDERS: Visit Provider Nurse Practitioner Family
DX: R22.9 Localized swelling, mass and lump, unspecified (principal)
CPT/HCPCS: 76857

== ENCOUNTER → 2025-04-22 14:00 | Outpatient (BNV) | payer OTHER, SELFPAY | PROVIDERS: Visit Provider Radiology Diagnostic Radiology | DX: R10.2 Pelvic and perineal pain (principal) | CPT/HCPCS: 76857 ==